=== PATIENT | male | born 1980 | race Two or more races ===

== ENCOUNTER 2022-04-25 10:20 | Emergency (ER) | payer OTHER | END 2022-04-25 11:32 | disposition home or self-care (01) | LOC: MW.ED 10:20 | DX: T15.02XA Foreign body in cornea, left eye, initial encounter (principal) | CPT/HCPCS: 99283 ==

== ENCOUNTER 2022-07-21 20:27 | Emergency (ER) | payer SELFPAY ==
[2022-07-21] MEDS ORDERED: Octyl 2-Cyanoacrylate 1 g/1 mL 1 APPLIC PEN TOP ONE (20:42)
== END 2022-07-21 20:59 ==
LOC: MW.ED 20:27
DX: S00.31XA Abrasion of nose, initial encounter (principal); Z02.89 Encounter for other administrative examinations; I10 Essential (primary) hypertension; Z79.899 Other long term (current) drug therapy
CPT/HCPCS: 12013; 99284; A9270; 12011; 99282

== ENCOUNTER 2022-07-31 11:13 | Emergency (ER) | payer SELFPAY | END 2022-07-31 13:13 | disposition home or self-care (01) | LOC: MW.ED 11:13 | DX: S06.0X0A Concussion without loss of consciousness, initial encounter (principal); I10 Essential (primary) hypertension; Z79.899 Other long term (current) drug therapy; W22.8XXA Striking against or struck by other objects, initial encounter | CPT/HCPCS: 70450; 70450-26; 99283 ==